=== PATIENT | female | born 1975 | race Hispanic/Latino ===

== ENCOUNTER 2017-12-29 08:44 | Emergency (ER) | payer OTHER ==
[2017-12-29] MEDS ORDERED: Lidocaine 1% Inj (20ml) IM ONE (09:43)
--- NOTE | 2017-12-29 10:50 | ED PDOC ---
HPI: Skin/Bite Injury Time Seen by Provider: 12/29/17 09:29 Chief Complaint (Nursing): Abnormal Skin Integrity Chief Complaint (Provider): Abnormal ksin integrity History Per: Patient History/Exam Limitations: no limitations Onset/Duration Of Symptoms: Days (x1 week) Current Symptoms Are (Timing): Still Present Location Of Injury: Posterior: Neck Quality Of Symptoms: Painful, Draining Additional Complaint(s): Sona Mejia is a 42 year old female, with no significant past medical history, who presents to the emergency department complaining of painful boil on back of the neck onset for x1 week. Patient states there is fluid draining from boil at times. She went to [facility] x2 times for the past week. During the first visit they drained it and started her on antibiotics, she went for the 2nd time earlier today but they were unable to drain it due to pain. She denies any fever , chills. No further medical complaints. PMD: None provided. Past Medical History Reviewed: Historical Data, Nursing Documentation, Vital Signs Vital Signs: Last Vital Signs Temp 97.8 F 12/29/17 14:05 Pulse 100 H 12/29/17 14:05 Resp 20 12/29/17 14:05 BP 102/61 12/29/17 14:05 Pulse Ox 100 12/29/17 14:05 - Medical History PMH: No Chronic Diseases Denies: Chronic Kidney Disease - Surgical History Surgical History: Endoscopy - Family History Family History: States: Unknown Family Hx - Social History Current smoker - smoking cessation education provided: No Alcohol: None Drugs: Denies - Immunization History Hx Tetanus Toxoid Vaccination: No Hx Influenza Vaccination: No Hx Pneumococcal Vaccination: No - Home Medications Home Medications: Ambulatory Orders Medication Instructions Recorded Clindamycin [Cleocin] 300 mg PO TID #30 cap 12/29/17 - Allergies Allergies/Adverse Reactions: Allergies Allergy/AdvReac Type Severity Reaction Status Date / Time No Known Allergies Allergy Verified 12/29/17 09:30 Review of Systems ROS Statement: Except As Marked, All Systems Reviewed And Found Negative Constitutional: Negative for: Fever, Chills Skin: Positive for: Other (back of the neck boil. ) Physical Exam - Reviewed Nursing Documentation Reviewed: Yes Vital Signs Reviewed: Yes - Physical Exam Appears: Positive for: Well, Non-toxic, No Acute Distress Head Exam: Positive for: ATRAUMATIC, NORMAL INSPECTION Skin: Positive for: Normal Color, Warm, Dry Eye Exam: Positive for: Normal appearance Neck: Positive for: Painless ROM, Supple. Negative for: Normal (2 inch diameter of swelling, and erythema in the center of posterior neck, on hairline border. Tender with small amount of purulent liquid, drained. ) Extremity: Positive for: Normal ROM. Negative for: Deformity, Swelling Neurologic/Psych: Positive for: Alert, Oriented - ECG O2 Sat by Pulse Oximetry: 100 (RA) Pulse Ox Interpretation: Normal Medical Decision Making Medical Decision Making: Initial Impression: abscess cellulitis of posterior neck Initial Plan: --Dilaudid 1 mg IVP --Lidocaine 1% 5 ml IM --Nitrous oxide via Mask --Reevaluation 10:51 Performed by the emergency provider Indication: Abscess Location: posterior neck Preparation: The area was prepped and draped in the usual sterile fashion. Local infiltration of Lidocaine 1% was used with local anesthesia with nitrous oxide. Opiod analgesic for additional pain management. Procedure: Approximately 1 mL of serosanguinous drainage. The abscess was packed. A dressing was applied by the RN. Post-Procedure: On exam the abscess is notably less fluctuant. The patient tolerated the procedure well, and there were no complications. Scribe Attestation: Documented by Cruzito Connolly, acting as a scribe for Darcy Chavez MD Provider Scribe Attestation: All medical record entries made by the Scribe were at my direction and personally dictated by me. I have reviewed the chart and agree that the record accurately reflects my personal performance of the history, physical exam, medical decision making, and the department course for this patient. I have also personally directed, reviewed, and agree with the discharge instructions and disposition. Disposition - Clinical Impression Clinical Impression: Abscess, Furuncle of neck - Patient ED Disposition Is Patient to be Admitted: No Doctor Will See Patient In The: Office Counseled Patient/Family Regarding: Studies Performed, Diagnosis, Need For Followup - Disposition Referrals: [facility] [Outside] Disposition: Routine/Home Disposition Time: 14:00 Condition: GOOD Additional Instructions: Take clindamycin for 10 days. Apply warm compresses to the area. Return to ER or see your PCP for wound check in 2-3 days. Prescriptions: Clindamycin [Cleocin] 300 mg PO TID #30 cap Instructions: Abscess Incision and Drainage (DC) Incision and Drainage - Time Time Performed: 10:51 - Time Out Time Out: Site verified - Consent obtained Consent obtained: Verbal - Performed by Performed by: Attending Physician - Location Location: Dorsal (neck) - Anesthetic Anesthetic: Lidocaine 1% (5 ml) - Procedure Procedure: Usual prep and drape - Drained Drained: ml serosanguinous fluid (1) - Post-procedure Post procedure: Neurovascular status norm - Complications Complications: None - Patient tolerated procedure Patient tolerated procedure: Well
[2017-12-29 11:09] VITALS: O2SAT 100
[2017-12-29] MEDS ORDERED: Sodium Chloride 0.9% 1,000 ML IV STA ×2 (11:42→13:36)
[2017-12-29 14:22] VITALS: BP 102/61; PULSE 100; RESP 20; TEMP 97.8
== END 2017-12-29 14:05 | disposition home or self-care (01) ==
LOC: H.ER 08:44
DX: L02.11 Cutaneous abscess of neck (principal); L02.12 Furuncle of neck
CPT/HCPCS: 10060; 81025; 96361; 96374; 96375; 99285; J1170; J2405; J7040